=== PATIENT | female | born 2000 | race Caucasian/White ===

== ENCOUNTER 2018-12-18 20:56 | Emergency (ER) | payer OTHER ==
[~2018-12-18] VITALS: Ht 165.1 cm; Wt 87.1 kg
[2018-12-18 21:08] VITALS: Ht 165.1 cm; Wt 87.1 kg
--- NOTE | 2018-12-18 23:04 | ERD ---
ER Documentation Chief Complaint Chief Complaint VAG BLEED, 8 WEEKS PG X'S 1 DAY HPI History of Present Illness: 18-year-old female who denies past medical history coming in today with complaint of vaginal bleeding. Patient reports being approximately 8 weeks , G1, P0, last menstrual period 10/21/2018. Patient reports bleeding started approximately 8 PM tonight, she noticed the blood after she got home from work. Patient reports symptoms of thick blood with small clots, smaller than skittles candy. Patient is accompanied by significant other as well as to other family members. Associated symptoms include mild cramping, 2/10. At home pharmacological/nonpharmacological treatment for symptoms: Denies Denies social concerns; Denies recent foreign travel ROS All systems reviewed and are negative except as per history of present illness. Allergies Allergies: Coded Allergies: No Known Allergy (Unverified , 08/06/13) PMhx/Soc History of Surgery: No Anesthesia Reaction: No Hx Neurological Disorder: No Hx Respiratory Disorders: No Hx Cardiac Disorders: No Hx Psychiatric Problems: No Hx Miscellaneous Medical Probl: No Hx Alcohol Use: No Hx Substance Use: No Hx Tobacco Use: No Smoking Status: Never smoker FmHx Family History: diabetes Physical Exam Vitals Vital Signs Date Temp Pulse Resp B/P (MAP) Pulse Ox O2 O2 Flow FiO2 Time Delivery Rate 12/19/18 98.0 73 15 133/79 100 Room Air 00:51 (97) 12/18/18 98.5 57 18 125/59 100 21:08 (81) Physical Exam Const: No acute distress Head: Atraumatic Eyes: Normal Conjunctiva ENT: Normal External Ears, Nose and Mouth. Neck: Full range of motion. No meningismus. Resp: Clear to auscultation bilaterally Cardio: Regular rate and rhythm, no murmurs Abd: Soft, mild tenderness to palpation to right lower quadrant and suprapu bic, non distended. Normal bowel sounds Skin: No petechiae or rashes Back: No midline or flank tenderness Ext: No cyanosis, or edema Neur: Awake and alert Psych: Normal Mood and Affect Result Diagram: 12/18/182149 Results 24 hrs Laboratory Tests Test 12/18/18 21:50 12/18/18 22:26 White Blood Count 13.7 10^3/ul Red Blood Count 4.18 10^6/ul Hemoglobin 11.4 g/dl Hematocrit 35.4 % Mean Corpuscular Volume 84.7 fl Mean Corpuscular Hemoglobin 27.3 pg Mean Corpuscular Hemoglobin Concent 32.2 g/dl Red Cell Distribution Width 13.7 % Platelet Count 306 10^3/UL Mean Platelet Volume 10.1 fl Immature Granulocytes % 0.300 % Neutrophils % 74.4 % Lymphocytes % 18.2 % Monocytes % 5.9 % Eosinophils % 1.0 % Basophils % 0.2 % Nucleated Red Blood Cells % 0.0 /100WBC Immature Granulocytes # 0.040 10^3/ul Neutrophils # 10.2 10^3/ul Lymphocytes # 2.5 10^3/ul Monocytes # 0.8 10^3/ul Eosinophils # 0.1 10^3/ul Basophils # 0.0 10^3/ul Nucleated Red Blood Cells # 0.0 10^3/ul Beta HCG, Quantitative 62226.0 mIU/ml Urine Color YELLOW Urine Clarity SLIGHTLY CLOUDY Urine pH 7.0 Urine Specific [place] 1.015 Urine Ketones NEGATIVE mg/dL Urine Nitrite POSITIVE mg/dL Urine Bilirubin NEGATIVE mg/dL Urine Urobilinogen NEGATIVE mg/dL Urine Leukocyte Esterase 1+ Steve/ul Urine Microscopic RBC 2 /HPF Urine Microscopic WBC 6 /HPF Urine Squamous Epithelial Cells FEW /HPF Urine Bacteria FEW /HPF Urine Hemoglobin 1+ mg/dL Urine Glucose NEGATIVE mg/dL Urine Total Protein NEGATIVE mg/dl Procedures/MDM ED course includes a thorough examination and history. Medications: Imaging: OB pelvic ultrasound Labs: CBC, Rh, urinalysis, beta quantitative Low suspicion for life-threatening medical emergency. Otherwise healthy patient presenting with constellation of symptoms likely representing urinary tract infection and vaginal bleeding during , threatened miscarriage as characterized by history, physical exam findings, imaging findings, lab findings. CBC: no e/o of systemic infection or severe anemia . urinalysis positive for infection, positive nitrites, 1+ leukocyte esterase, 6+ WBCs, few bacteria, 1+ hemoglobin. RH B-positive, NO RhoGam indicated. Ultrasound results showing: IMPRESSION: 1. Single live intrauterine gestation of approximately 6 weeks 1 day by crown rump length. 2. No subchorionic hemorrhage. 3. Right ovary not visualized. RPTAT: HMVK .Woody Garcia MD, MD Date Time Electronically viewed and signed by .Woody Garcia MD, on 12/18/2018 23:06 Patient reassessment 0035: Patient hemodynamically stable. No signs of hemorrhage. Mother and patient verbalized understanding of instructions. No respiratory distress, otherwise relatively well appearing and nontoxic. Disposition given. Patient educated on diagnoses, prescriptions, follow-up care, return precautions. Strict return precautions given for worsening condition; questions answered discharge. Disposition for discharge with followup in 2 days with PCP/clinic. Patient left without prescription for cephalexin. Called patient on 12/19 2018 on her mother's cell phone. Spoke to patient that [id number]. Updated her on results of her urinalysis. Patient denies genitourinary symptoms. Patient requests prescription for cephalexin to be called into [facility] at [place]. Patient verbalizes understanding of importance of getting prescription filled to prevent labor complications associated with untreated urinary tract infection. Spoke to pharmacist DR. EMMANUEL at [phone] Cephalexin 500 mg p.o. 4 times daily for 7 days confirmed this prescription via telephone. Departure Diagnosis: Primary Impression: Vaginal bleeding in patient at less than 20 weeks gestation Additional Impressions: Threatened in first trimester Urinary tract infection Urinary tract infection type: site unspecified Hematuria presence: with hematuria Qualified Codes: N39.0 - Urinary tract infection, site not specified; R31.9 - Hematuria, unspecified Condition: GLADYS Yoder NP Dec 18, 2018 23:04
[2018-12-19 00:51] VITALS: BP 133/79; PULSE 73; RESP 15
== END 2018-12-19 00:50 | disposition home or self-care (01) ==
LOC: FTE 20:56
DX: O20.0 Threatened abortion (principal); O23.41 Unspecified infection of urinary tract in pregnancy, first trimester; Z3A.08 8 weeks gestation of pregnancy
CPT/HCPCS: 36415; 76801; 76817; 81001; 84702; 85025; 86900; 86901; Z7502